=== PATIENT | female | born 1955 | race Caucasian/White ===

== ENCOUNTER 2017-07-20 20:30 | Outpatient (CLI) | payer BC | END 2017-07-20 20:31 | disposition home or self-care (01) | LOC: SLEEPLAB 20:30 | PROVIDERS: ATTEND Internal Medicine Pulmonary Disease | DX: G47.33 Obstructive sleep apnea (adult) (pediatric) (principal); E66.9 Obesity, unspecified | CPT/HCPCS: 95810 ==

== ENCOUNTER 2017-07-22 17:46 | Emergency (ER) | payer BC ==
--- NOTE | 2017-07-22 18:52 | RAD ---
TWO VIEWS CHEST: 07/22/17 PROVIDED CLINICAL HISTORY: Cough. FINDINGS: No comparison. The cardiac silhouette appears upper limits of normal in size. There is left suprahilar parenchymal o pacity suspected. Lungs appear otherwise clear. No pleural fluid or pneumothorax apparent. Surgical c lips are seen overlying the left chest wall. IMPRESSION: Left suprahilar parenchymal opacity, which may reflect pneumonia in the appropriate clinical context. Radiographic to evaluate for resolution recommended. POS: [facility]
[2017-07-22] MEDS ORDERED: Metoclopramide HCl 10 MG/2 ML VIAL ONE (21:14)
[2017-07-22] MEDS ORDERED: diphenhydrAMINE 50 MG/ML VIAL ONE (21:14)
[2017-07-22 21:21] LABS: #Basophils 0.1 thou/uL (0.0-0.2); #Eosinphils 0.4 thou/uL (0.0-0.7); #Lymphocytes 1.9 thou/uL (1.20-3.40); #Monocytes 0.4 thou/uL (0.11-0.59); #Neutrophils 3.9 thou/uL (1.40-6.50); %Basophils 0.8 % (0.0-1.0); %Eosinophils 5.8 % (0.0-10.0); %Lymphocytes 28.6 % (21.0-51.0); %Monocytes 5.5 % (0.0-10.0); %Neutrophils 59.3 % (42.0-75.0); Hemoglobin 15.4 g/dL (12.0-16.0); Mean Corpuscular HGB CONC 35.1 g/dL (32.0-36.0); Mean Corpuscular Hemoglobin 30.2 pg (27.0-31.0); Mean Platelet Volume 8.1 fL (7.4-10.4); Platelet Count 188 thou/uL (130-400); RBC Distribution Width 12.2 % (11.5-14.5); Red Blood Cell (RBC) Count 5.09 mill/uL (4.20-5.40); White Blood Cell (WBC) Count 6.6 thou/uL (4.8-10.8)
[2017-07-22 21:41] LABS: ALT (SGPT) 41 U/L (8-55); AST (SGOT) 27 U/L (5-34); Albumin 4.8 g/dL (3.5-5.0); Alkaline Phosphatase 49 U/L (40-150); Anion Gap 15 mmol/L (10-20); BUN (Urea Nitrogen) 23 mg/dL (9.8-20.1); Bilirubin, Total 0.4 mg/dL (0.2-1.2); Calc. Creatinine Clearance 0 mL/min (70-130); Calcium 9.7 mg/dL (7.8-10.44); Carbon Dioxide 22 mmol/L (22-29); Chloride 106 mmol/L (98-107); Estimated GFR-MDRD Greater than 90; Glucose 89 mg/dL (70-105); Potassium 3.9 mmol/L (3.5-5.1); Protein, Total 7.8 g/dL (6.0-8.3); Sodium 139 mmol/L (136-145)
--- NOTE | 2017-07-22 22:34 | CT ---
CT BRAIN 07/22/17 PROVIDED CLINICAL HISTORY: Headache. FINDINGS: No comparisons. The ventricular system appears normal in size and morphology. There is no evidence for intracranial h emorrhage or mass effect. The extracranial soft tissues and osseous structures demonstrate an unremar kable CT appearance. IMPRESSION: No evidence for intracranial hemorrhage or mass effect. POS: [facility]
== END 2017-07-22 23:30 | disposition home or self-care (01) ==
LOC: ERS 17:46
DX: J18.9 Pneumonia, unspecified organism (principal); F41.9 Anxiety disorder, unspecified; F32.9 Major depressive disorder, single episode, unspecified; Z85.3 Personal history of malignant neoplasm of breast
CPT/HCPCS: 70450; 71046; 80053; 85025; 96374; 96375; J1200; J2765

== ENCOUNTER 2017-07-25 16:11 | Observation (INO) | payer BC ==
[2017-07-25 18:12] LABS: #Eosinphils 0.1 thou/uL (0.0-0.7); #Lymphocytes 1.3 thou/uL (1.20-3.40); #Monocytes 0.2 thou/uL (0.11-0.59); #Neutrophils 4.6 thou/uL (1.40-6.50); %Basophils 0.3 % (0.0-1.0); %Eosinophils 1.9 % (0.0-10.0); %Monocytes 3.6 % (0.0-10.0); %Neutrophils 73.2 % (42.0-75.0); Hemoglobin 14.5 g/dL (12.0-16.0); Mean Corpuscular HGB CONC 35.1 g/dL (32.0-36.0); Mean Corpuscular Hemoglobin 30.2 pg (27.0-31.0); Mean Platelet Volume 8.7 fL (7.4-10.4); Platelet Count 159 thou/uL (130-400); White Blood Cell (WBC) Count 6.3 thou/uL (4.8-10.8)
[2017-07-25] MEDS ORDERED: Metoclopramide HCl 10 MG/2 ML VIAL ONE (18:13)
[2017-07-25] MEDS ORDERED: diphenhydrAMINE 50 MG/ML VIAL ONE (18:13)
[2017-07-25] MEDS ORDERED: diphenhydrAMINE 50 MG CAP ONE (18:13)
[2017-07-25 18:18] LABS: ALT (SGPT) 40 U/L (8-55); AST (SGOT) 27 U/L (5-34); Albumin 4.6 g/dL (3.5-5.0); Alkaline Phosphatase 44 U/L (40-150); Anion Gap 14 mmol/L (10-20); BUN (Urea Nitrogen) 18 mg/dL (9.8-20.1); Bilirubin, Total 0.4 mg/dL (0.2-1.2); Calc. Creatinine Clearance 0 mL/min (70-130); Calcium 9.3 mg/dL (7.8-10.44); Carbon Dioxide 24 mmol/L (22-29); Chloride 106 mmol/L (98-107); Estimated GFR-MDRD Greater than 90; Globulin 2.7 g/dL (2.4-3.5); Glucose 107 mg/dL (70-105); Protein, Total 7.3 g/dL (6.0-8.3); Sodium 140 mmol/L (136-145)
--- NOTE | 2017-07-25 18:51 | CT ---
NONCONTRAST HEAD CT 07/25/17 COMPARISON: 07/22/17. HISTORY: Headache. Nausea. FINDINGS: No parenchymal hemorrhage. No extra-axial hematoma. No midline shift. Basilar cisterns are patent. Ag e appropriate atrophy. Stable malacic change involving both frontal lobes. Remaining cerebrum demonst rates preservation of cortical fernando-white matter differentiation. No significant change in terms of t he ventricular system. No hydrocephalus. Stable calvarium and sinuses/mastoid air cells. IMPRESSION: 1. No acute intracranial process. 2. No significant interval change. POS: [facility]
[2017-07-25 19:47] LABS: CSF Source CSF; Clarity Clear (Clear); Tube # 4
[2017-07-25] MEDS ORDERED: Acetaminophen 325 MG TAB ONE (19:47)
[2017-07-25] MEDS ORDERED: Ketorolac Tromethamine 30 MG/ML VIAL ONE (19:47)
[2017-07-25 19:51] LABS: RBC Count - Manual 3 /cumm (None Seen); WBC/NonHematics Count - Manual 1 /cumm (0-5)
[2017-07-25 19:53] LABS: CSF Source CSF; Tube # 1
[2017-07-25 19:57] LABS: Color Of CSF Supernatant COLORLESS (Colorless); Tube # 2; Unspun CSF Color COLORLESS (Colorless)
[2017-07-25 20:02] LABS: Clarity Hazy (Clear); RBC Count - Manual 402 /cumm (None Seen); WBC/NonHematics Count - Manual 3 /cumm (0-5)
[2017-07-25 20:07] LABS: CSF, Glucose 69 mg/dl (40-70); CSF, Protein 48 mg/dL (15-40)
[2017-07-25] MEDS ORDERED: Ondansetron ODT 4 MG TAB PO PRN (22:25)
[2017-07-25] MEDS ORDERED: Mag-Al 1200 mg/1200 mg/30 ML UDCUP PO PRN (22:25)
[2017-07-25] MEDS ORDERED: Artificial Tears 18 DROP/0.9 ML EA EYE PRN (22:25)
[2017-07-25] MEDS ORDERED: Senokot 8.6 MG TAB PO PRN (22:25)
[2017-07-25] MEDS ORDERED: Loratadine 10 MG TAB PO PRN (22:25)
[2017-07-25] MEDS ORDERED: Eucerin (Mineral Oil/Petrolatum,White) 30 gm Jar TOP PRN (22:25)
[2017-07-25] MEDS ORDERED: Labetalol HCl 100 MG/20 ML VIAL SLOW IVP PRN (22:25)
[2017-07-25] MEDS ORDERED: Ondansetron HCl/PF 4 MG/2 ML Vial IVP PRN (22:25)
[2017-07-25] MEDS ORDERED: Diabetic Tussin 200 MG/10 ML UDCUP PO PRN (22:25)
[2017-07-25] MEDS ORDERED: Acetaminophen 325 MG TAB PO PRN (22:25)
[2017-07-25] MEDS ORDERED: HYDROcodone/Acetaminophen 10/325 mg Tablet PO PRN (22:25)
[2017-07-25] MEDS ORDERED: Sodium Chloride 0.65% Nasal 44 ML BOT EA NARE PRN (22:25)
[2017-07-25] MEDS ORDERED: Loperamide HCl 2 MG CAP PO PRN (22:25)
[2017-07-25] MEDS ORDERED: Chloraseptic Spray 180 ml Bottle PO PRN (22:25)
[2017-07-25] MEDS ORDERED: Milk Of Magnesia 30 ML UDCUP PO PRN (22:25)
[2017-07-25] MEDS ORDERED: Zolpidem Tartrate 5 MG TAB PO PRN (22:25)
[2017-07-25] MEDS ORDERED: Metoclopramide HCl 10 MG/2 ML VIAL IVP PRN (22:25)
[2017-07-25] MEDS ORDERED: Ketorolac Tromethamine 30 MG/ML VIAL IVP PRN (22:25)
[2017-07-25] MEDS ORDERED: Morphine 4 MG/ML Carpuject SLOW IVP PRN (22:25)
[2017-07-26] MEDS: Sodium Chloride 0.9% 1,000 ML IV SCH ×3 (00:15→20:49)
--- NOTE | 2017-07-26 01:34 | HP ---
PRIMARY CARE PHYSICIAN: Dr. Joanne Kennedy. DATE OF SERVICE: 07/25/2017 REASON FOR ADMISSION: Intractable headache, nausea, and vomiting. HISTORY OF PRESENT ILLNESS: A 62-year-old female with a history of migraine headache as well as previous history of breast cancer, who came to the emergency room with complaint of headache, nausea or vomiting. She did not have any fever. Her headache was throbbing in nature. She was not able to tolerate her p.o. intake. Patient reports that she was diagnosed with pneumonia on 07/20/2017 and patient was getting antibiotic therapy for that. She denies any UTI symptoms. She denies any constipation, diarrhea, melena, hematochezia. She denies any focal neurological symptoms including paraesthesia or weakness. She denies any blurred vision, diplopia. She denies any worse headache for her. In the emergency room, this patient had lumbar puncture done which showed first CSF bottle with RBC 402, but fourth bottle was showing RBC only 3. Patient was tried with the several medications in the emergency room to control her headache , nausea and vomiting, but she was not feeling any better and that is why we decided to keep this patient in the hospital for observation. REVIEW OF SYSTEMS: The following complete review of systems was negative, unless otherwise mentioned in the HPI or below: Constitutional: Weight loss or gain, ability to conduct usual activities. Skin: Rash, itching. Eyes: Double vision, pain. ENT/Mouth: Nose bleeding, neck stiffness, pain, tenderness. Cardiovascular: Palpitations, dyspnea on exertion, orthopnea. Respiratory: Shortness of breath, wheezing, cough, hemoptysis, fever or night sweats. Gastrointestinal: Poor appetite, abdominal pain, heartburn, nausea, vomiting, constipation, or diarrhea. Genitourinary: Urgency, frequency, dysuria, nocturia. Musculoskeletal: Pain, swelling. Neurologic/Psychiatric: Anxiety, depression. Allergy/Immunologic: Skin rash, bleeding tendency. Please see my HPI for pertinent positives and negatives. All other review of systems reviewed and negative except as mentioned in the HPI. ALLERGIES: DOXYCYCLINE, HYDROCODONE, IODINE, NORTRIPTYLINE, PENICILLIN, TRAMADOL. CURRENT HOME MEDICATIONS: Patient was taking Levaquin 750 mg p.o. daily. PAST MEDICAL HISTORY: Migraine headache, history of breast cancer. PAST SURGICAL HISTORY: Lumpectomy in 2014 on the left side, bilateral foot surgery, carpal tunnel repair of the right side, appendicectomy, x2, hysterectomy. PAST PSYCHIATRIC HISTORY: Anxiety and depression. SOCIAL HISTORY: Patient lives at home by herself. No history of tobacco, alcohol or illicit drug abuse. FAMILY HISTORY: No strong family history of premature coronary artery disease, stroke or cancer. EMERGENCY ROOM COURSE: In the emergency room, patient was given Tylenol 650 mg , Toradol 15 mg, Benadryl 25 mg, Reglan 10 mg, and IV fluid. PHYSICAL EXAMINATION: VITAL SIGNS: On arrival, blood pressure 135/85, pulse 68, respiratory rate 20, temperature 97.5, saturation 95% on room air, weight 77.1 kilograms. GENERAL: Patient is currently alert, awake, in mild distress due to headache. HEENT: Head: Normocephalic, atraumatic. Eyes: Pupils round, reactive to light. Extraocular muscles intact. ENT: Oropharynx within normal limits. Moist mucous membranes. No oral lesions. No pharyngeal erythema, no exudate. NECK: Supple, no JVD, no thyromegaly, no carotid bruit, no meningeal signs of irritation. LUNGS: Clear to auscultation without any rhonchi or rales. CARDIAC: S1, S2 regular without any murmur. ABDOMEN: Soft, bowel sounds present, nontender, nondistended. No organomegaly , no mass, no suprapubic tenderness. BACK: Unremarkable, no CVA tenderness. EXTREMITIES: Upper extremity, passive movements of all joints are normal. Lower extremity, no edema. Good peripheral pulsation. SKIN: No skin rash. HEMATOLOGICAL: No lymphadenopathy. PSYCHIATRIC: Normal affect. SIGNIFICANT LABS: CBC: WBC 6.3, hemoglobin 14.5, platelets 159. BMP: Sodium 140, potassium 4.0, chloride 106, carbon dioxide 24, anion gap 14, BUN 18, creatinine 0.57, glucose 107, calcium 9.3. Lactic acid 1.5. LFT: AST 27, ALT 40, alkaline phosphatase 44, albumin 4.6. CSF, WBC 1, RBC 3, protein 48, glucose 69. CT brain based on my review, no acute intracranial process. Chest x-ray based on my review, no acute cardiopulmonary process. ASSESSMENT AND PLAN: 1. Intractable headache most likely due to migraine headache. CT brain is negative. CSF is unremarkable. We will consult Neurology for their opinion. Meanwhile, we will treat symptomatically with Toradol, morphine. 2. Nausea and vomiting, intractable likely associated with headache. I am suspecting migraine headache exacerbation. We will continue to treat with Zofran and Reglan and will hydrate her with IV fluids. 3. Anxiety and depression. Patient is not on any specific treatment at this point and patient will continue to follow up with primary care physician. 4. Deep venous thrombosis prophylaxis not needed because we are expecting discharge in 24 hours. 5. Gastrointestinal prophylaxis, Pepcid 20 mg p.o. b.i.d. 6. CODE STATUS: Patient is FULL CODE. Patient does not have any surrogate decision maker. She is making her own decisions. Disposition plan based on clinical course, likely in 24 hours. MTDD
[2017-07-26 05:41] LABS: #Basophils 0.1 thou/uL (0.0-0.2); #Eosinphils 0.4 thou/uL (0.0-0.7); #Lymphocytes 2.1 thou/uL (1.20-3.40); #Monocytes 0.5 thou/uL (0.11-0.59); #Neutrophils 4.7 thou/uL (1.40-6.50); %Basophils 1.1 % (0.0-1.0); %Eosinophils 4.9 % (0.0-10.0); %Lymphocytes 27.2 % (21.0-51.0); %Monocytes 6.6 % (0.0-10.0); %Neutrophils 60.2 % (42.0-75.0); Hemoglobin 13.4 g/dL (12.0-16.0); Mean Corpuscular HGB CONC 35.1 g/dL (32.0-36.0); Mean Corpuscular Hemoglobin 30.5 pg (27.0-31.0); Mean Corpuscular Volume 86.7 fl (81.0-99.0); Mean Platelet Volume 8.4 fL (7.4-10.4); Platelet Count 153 thou/uL (130-400); Red Blood Cell (RBC) Count 4.41 mill/uL (4.20-5.40); White Blood Cell (WBC) Count 7.8 thou/uL (4.8-10.8)
[2017-07-26 06:01] LABS: Anion Gap 11 mmol/L (10-20); BUN (Urea Nitrogen) 17 mg/dL (9.8-20.1); Calc. Creatinine Clearance 123 mL/min (70-130); Calcium 8.6 mg/dL (7.8-10.44); Carbon Dioxide 23 mmol/L (22-29); Chloride 111 mmol/L (98-107); Estimated GFR-MDRD Greater than 90; Glucose 107 mg/dL (70-105); Potassium 3.4 mmol/L (3.5-5.1); Sodium 142 mmol/L (136-145)
[2017-07-26] MEDS: Famotidine 20 MG TAB PO SCH ×2 (09:06→20:50)
[2017-07-26] MEDS ORDERED: Metoclopramide HCl 10 MG/2 ML VIAL IVP SCH (10:15)
[2017-07-26] MEDS ORDERED: Dexamethasone 10 MG/ML VIAL SLOW IVP SCH (10:15)
[2017-07-26] MEDS ORDERED: Dihydroergotamine Mesylate 1 MG/ML AMP IM SCH (10:15)
[2017-07-26] MEDS ORDERED: Dihydroergotamine Mesylate 1 MG/ML AMP SLOW IVP SCH (11:15)
[2017-07-26] MEDS: Valproate Sodium 1,000 MG, Admixture Fee 1 EACH in Sodium Chloride 0.9% 100 ML IVPB SCH ×2 (11:28→12:14)
[2017-07-26] MEDS ORDERED: diphenhydrAMINE 50 MG/ML VIAL IVP SCH (12:00)
--- NOTE | 2017-07-26 12:38 | CON ---
DATE OF CONSULTATION: 07/26/2017 NEUROLOGY CONSULTATION CONSULTING PHYSICIAN: Hospitalist Service. IMPRESSION: Probable status migrainosus. PLAN: Deion protocol. HISTORY OF PRESENT ILLNESS: Ms. Parnell is a 62-year-old female with a past history of sleep apnea, hypertension, and episodic headaches. She would frequently awaken in the morning with a head ache if her CPAP is fall off. She usually responded to BC powders. About 10 days ago, she woke up w ith a headache that did not respond to medication. She was seen by her primary care physician and no yohan to be quite hypertensive and started on medicine for this, despite improving blood pressures her headache did not improve. She continued to complain of a throbbing frontal headache associated with nausea and vomiting. She is not running any fever. She came into the emergency room last night and had a CT scan of the brain done, which was normal. Lumbar puncture was unremarkable as well. A rout ine lab work was all unremarkable. She was told that she will probably had pneumonia and started on antibiotics. She reports that the Toradol and Reglan reduced the headache only slightly. PAST MEDICAL HISTORY: As listed above. ALLERGIES: PENICILLIN, IODINE, HYDROCODONE, DOXYCYCLINE, TRAMADOL, LYRICA, and PAMELOR. SOCIAL HISTORY: Unremarkable. FAMILY HISTORY: Noncontributory. REVIEW OF SYSTEMS: No focal neurologic complaints. PHYSICAL EXAMINATION: GENERAL: She is a well-nourished middle-aged woman lying in bed, in some mild distress. VITAL SIGNS: Blood pressure 124/63, pulse 63, respirations 20, temperature 97.7. HEENT: Unremarkable. NEUROLOGIC: She is alert and appropriate. Her speech is fluent and clear. Her exam is nonfocal. LABORATORY STUDIES: Included a CBC, serum chemistry and lumbar puncture were reviewed. SUMMARY: This is a middle-aged woman with persistent frontal throbbing headache with nausea and vomi ting suggestive of migraine. Hopefully, this protocol will break the cycle of pain.
[2017-07-26] MEDS: Metoclopramide HCl 10 MG/2 ML VIAL IVP SCH (17:54)
[2017-07-26] MEDS: Dihydroergotamine Mesylate 1 MG/ML AMP SLOW IVP SCH (17:59)
[2017-07-26] MEDS ORDERED: Ketorolac Tromethamine 30 MG/ML VIAL IVP PRN (18:04)
--- NOTE | 2017-07-26 18:18 | PDOC.PN ---
- Subjective Encounter Start Date: 07/26/17 Encounter Start Time: 18:00 Subjective: f/u for intractable migraine VAZQUEZ currently receiving migraine protocol -: regimen. Improved but still present. No N/V. No visual changes. - Objective Resuscitation Status: Resuscitation Status FULL:Full Resuscitation MAR Reviewed: Yes Vital Signs & Weight: Vital Signs (12 hours) Temp Pulse Resp BP BP Pulse Ox 07/26/17 16:10 97.8 F 77 16 123/64 94 L 07/26/17 12:20 98.5 F 60 18 149/77 H 95 07/26/17 09:00 97.7 F 63 20 124/63 96 07/26/17 08:00 97.7 F 63 20 Weight Admit Weight 169 lb 12.095 oz Weight 169 lb 12.095 oz I&O: 07/25/17 07/26/17 07/27/17 06:59 06:59 06:59 Intake Total 720 Balance 720 Result Diagrams: 07/26/17 05:28 07/26/17 05:28 Additional Labs: Microbiology 07/25/17 19:37 Lumbar - Pending Body Fluid Culture - Preliminary 07/25/17 18:24 Venous blood - Right Hand Blood Culture - Preliminary Specimen has been received and culture in progress. No Growth to date. 07/25/17 18:24 Venous blood - Left Arm Blood Culture - Preliminary Specimen has been received and culture in progress. No Growth to date. Radiology Reviewed by me: Yes (CT Brain - negative) Phys Exam - Physical Examination Constitutional: NAD HEENT: PERRLA, oral pharynx no lesions Neck: no JVD, supple Respiratory: no wheezing, clear to auscultation bilateral Cardiovascular: RRR Gastrointestinal: soft, non-tender, no distention, positive bowel sounds Musculoskeletal: no edema, pulses present Neurological: normal sensation, moves all 4 limbs Psychiatric: A&O x 3 Skin: normal turgor, cap refill <2 seconds Dx/Plan (1) Migraine headache Code(s): G43.909 - MIGRAINE, UNSP, NOT INTRACTABLE, WITHOUT STATUS MIGRAINOSUS Status: Acute Qualifiers: Intractability: intractable Comment: Continue Migraine VAZQUEZ protocol with Valproic acid, Decadron, DHE, Toradol prn (2) Nausea and vomiting Code(s): R11.2 - NAUSEA WITH VOMITING, UNSPECIFIED Status: Acute Comment: Resolved, continue IVF's (3) Anxiety and depression Code(s): F41.8 - OTHER SPECIFIED ANXIETY DISORDERS Status: Acute Comment: Supportive, Spiritual Care - Plan out of bed/ambulate, DVT proph w/SCDs Stable overall -: Continue VAZQUEZ protocol -: Continue IVF's -: Change Toradol 30mg IV q6h -: Likely home in am * .
[2017-07-27] MEDS: Metoclopramide HCl 10 MG/2 ML VIAL IVP SCH ×3 (00:08→13:08)
[2017-07-27] MEDS: Dihydroergotamine Mesylate 1 MG/ML AMP SLOW IVP SCH ×3 (00:12→13:08)
[2017-07-27] MEDS: Sodium Chloride 0.9% 1,000 ML IV SCH ×2 (06:15→16:09)
[2017-07-27 08:13] VITALS: BP 132/67; TEMP 97.8
[2017-07-27] MEDS: Famotidine 20 MG TAB PO SCH (09:43)
--- NOTE | 2017-07-27 13:20 | DIS ---
DATE OF ADMISSION: 07/25/2017 DATE OF DISCHARGE: 07/27/2017 DISCHARGE DIAGNOSES: 1. Migraine headache, improved. 2. Nausea and vomiting, likely secondary to #1, resolved. 3. Anxiety. CONSULTATION: Dr. Wilver Araujo with Neurology Service. PERTINENT LABORATORY DATA AND X-RAY FINDINGS: Potassium ranged between 3.4-4.0. Lactic acid level 1 .5. LFTs within normal limits. CBC within normal limits. Blood cultures x2 dated 07/25/2017 showed no growth to date. CSF culture dated 07/25/2017 showed no growth at [address] of the brain with out contrast dated 07/22/2017 showed no acute intracranial process. Portable chest x-ray dated 07/22 showed parenchymal opacity in the left suprahilar region likely scarring. HOSPITAL COURSE: The patient was placed in observation status after presenting with intractable head ache with associated nausea and vomiting and suspected migraine headache. The patient was placed on IV fluids as well as evaluated by the Neurology Service due to the intractable nature. The patient w as placed on headache protocol, receiving IV valproic acid, Decadron, Reglan, Toradol, and DHE. Ibeth ent was slow to clinically improve; however, did have some improvement in overall headache control wi th current treatment. The patient was able to tolerate regular oral intake, ambulated without assist ance or difficulty with resolution of nausea and vomiting. Overall, patient did remain clinically st able throughout the hospital course. The patient was ruled out for underlying infectious source with CSF analysis negative as stated previously. The patient was also noted with potential left-sided pn eumonia; however, review of the chest imaging shows likely scarring from previous left-sided breast c ancer and prior scarring from likely infectious process remotely. Overall, patient did remain clinic ally stable throughout the hospital course and ready for discharge on 07/27/2017. DISCHARGE MEDICATIONS: 1. Ibuprofen 800 mg 1 tab p.o. t.i.d. p.r.n. 2. Midodrine 1 capsule p.o. q.1 hour as needed for migraine headache. 3. Carbamazepine 200 mg p.o. b.i.d. 4. Enteric coated aspirin 81 mg p.o. daily. 5. Bystolic 5 mg 1 tablet p.o. daily. FOLLOWUP: The patient may follow up with her primary care provider, Dr. Joanne Kennedy within 7 days o f discharge. The patient will follow with Dr. Surinder Martin with Pulmonology Service to review outpa tient sleep study. CONDITION ON DISCHARGE: Stable. ACTIVITY: Ad jono. DIET: Regular. CODE STATUS: FULL. DISPOSITION: Home 07/27/2017.
== END 2017-07-27 18:06 | disposition home or self-care (01) ==
LOC: ERS 16:11 → ONC 22:20
PROVIDERS: ADMIT Internal Medicine; ATTEND Internal Medicine
DX: G43.909 Migraine, unspecified, not intractable, without status migrainosus (principal); R11.2 Nausea with vomiting, unspecified; F41.9 Anxiety disorder, unspecified; F41.8 Other specified anxiety disorders; G47.30 Sleep apnea, unspecified; I10 Essential (primary) hypertension; J18.9 Pneumonia, unspecified organism; Z79.2 Long term (current) use of antibiotics; Z79.82 Long term (current) use of aspirin; Z79.899 Other long term (current) drug therapy; Z88.5 Allergy status to narcotic agent; Z88.0 Allergy status to penicillin; Z88.8 Allergy status to other drugs, medicaments and biological substances; Z88.1 Allergy status to other antibiotic agents; Z91.041 Radiographic dye allergy status; Z90.710 Acquired absence of both cervix and uterus; Z90.49 Acquired absence of other specified parts of digestive tract; Z98.890 Other specified postprocedural states; Z98.891 History of uterine scar from previous surgery; Z85.3 Personal history of malignant neoplasm of breast
CPT/HCPCS: 36415; 62270; 70450; 80048; 80053; 82945; 83605; 84157; 85025; 87040; 87070; 87205; 89051; 96361; 96365; 96374; 96375; 96376; A4216; G0378; J1100; J1110; J1200; J1885; J2765; J7050

== ENCOUNTER 2017-08-07 19:30 | Outpatient (CLI) | payer BC | END 2017-08-07 19:31 | disposition home or self-care (01) | LOC: SLEEPLAB 19:30 | PROVIDERS: ATTEND Internal Medicine Pulmonary Disease | DX: G47.33 Obstructive sleep apnea (adult) (pediatric) (principal); E66.9 Obesity, unspecified; F32.9 Major depressive disorder, single episode, unspecified; R06.83 Snoring | CPT/HCPCS: 95811 ==

== ENCOUNTER 2017-11-30 16:05 | Outpatient (CLI) | payer BC | END 2017-11-30 16:06 | disposition home or self-care (01) | LOC: BICRAD 16:05 | PROVIDERS: ATTEND Family Medicine | DX: R91.8 Other nonspecific abnormal finding of lung field (principal); M19.032 Primary osteoarthritis, left wrist; M25.531 Pain in right wrist; Z85.3 Personal history of malignant neoplasm of breast | CPT/HCPCS: 71046 ==

== ENCOUNTER 2019-05-17 10:01 | Outpatient (CLI) | payer BC ==
--- NOTE | 2019-05-17 11:06 | RAD ---
PA AND LATERAL VIEWS CHEST: Date: 05/17/19 HISTORY: Chronic sinusitis, cough, chest pain. FINDINGS: Comparison made with exam of 02/21/19. The heart size is normal. The aorta is tortuous. Chronic changes are again seen. No lobar consolidati on, pneumothoraces, or pleural effusions are identified. IMPRESSION: No acute process. POS: [facility]
--- NOTE | 2019-05-17 11:15 | RAD ---
SINUSES 3 VIEWS: Date: 05/17 HISTORY: Chronic sinusitis. FINDINGS/IMPRESSION: No air fluid levels are seen to suggest acute sinusitis. POS: [facility]
== END 2019-05-17 10:02 | disposition home or self-care (01) ==
LOC: BICRAD 10:01
PROVIDERS: ATTEND Family Medicine
DX: J32.9 Chronic sinusitis, unspecified (principal); R91.8 Other nonspecific abnormal finding of lung field
CPT/HCPCS: 70220; 71046